=== PATIENT | male | born 1945 | race Two or more races ===

== ENCOUNTER 2017-05-29 17:04 | Emergency (ER) | payer MEDICARE, MEDICAID ==
[~2017-05-29] VITALS: Ht 170.2 cm; Wt 67.4 kg
[2017-05-29 18:03] LABS: HEMATOCRIT 42.5 % (39.2-51.8); HEMOGLOBIN 14.2 g/dL (13.7-18.0)
[2017-05-29 18:08] LABS: BLOOD UREA NITROGEN 25 mg/dL (7-18)
[2017-05-29 19:07] VITALS: BP 152/81
== END 2017-05-29 20:43 | disposition home or self-care (01) ==
LOC: ED 20:37
DX: N30.00 Acute cystitis without hematuria (principal); Z86.73 Personal history of transient ischemic attack (TIA), and cerebral infarction without residual deficits
CPT/HCPCS: 36415; 51702; 80048; 81001; 82040; 85025; 87086; 99284